=== PATIENT | male | born 1995 ===

== ENCOUNTER 2019-10-05 20:17 | Emergency (ER) | payer OTHER ==
[~2019-10-05] VITALS: Ht 188 cm; Wt 81.6 kg
[2019-10-06] MEDS ORDERED: KETO10TA2 PO (15:14)
== END 2019-10-05 23:13 | disposition home or self-care (01) ==
LOC: ER 20:17
DX: B34.9 Viral infection, unspecified (principal); Z03.818 Encounter for observation for suspected exposure to other biological agents ruled out; R05 Cough; R51 Headache

== ENCOUNTER 2019-10-06 11:19 | Emergency (ER) | payer OTHER ==
[~2019-10-06] VITALS: Ht 188 cm; Wt 81.6 kg
[2019-10-06] MEDS ORDERED: KETO10TA2 PO (15:14)
== END 2019-10-06 15:38 | disposition home or self-care (01) ==
LOC: ER 11:19
DX: R10.31 Right lower quadrant pain (principal)

== ENCOUNTER 2020-02-06 11:40 | Emergency (ER) | payer OTHER ==
[~2020-02-06] VITALS: Ht 188 cm; Wt 90.7 kg
[~2020-02-06 11:40] MED LIST: KETO10TA2 PO
[2020-02-06] MEDS ORDERED: AIRBORNE EFFER1 EACH PO (12:05)
[2020-02-06] MEDS ORDERED: SYMBICORT 16010.2 GM IH (12:05)
== END 2020-02-06 14:04 | disposition home or self-care (01) ==
LOC: ER 11:40
DX: R05 Cough (principal); Z03.818 Encounter for observation for suspected exposure to other biological agents ruled out

== ENCOUNTER 2024-04-19 08:28 | Emergency (ER) | payer OTHER ==
[~2024-04-19] VITALS: Ht 190.5 cm; Wt 90.7 kg
[~2024-04-19 08:28] MED LIST changes: +AIRBORNE EFFER1 EACH PO; +SYMBICORT 16010.2 GM IH
[2024-04-19] MEDS ORDERED: KETOROLAC TROMETHAMINE 60 MG VIAL IM ONE ×2 (09:10→09:15)
[2024-04-19] MEDS ORDERED: DEXAMETHASONE SODIUM PHOSPHATE 4 MG/ML VIAL ONE (09:10)
[2024-04-19] MEDS ORDERED: IBU800 MG PO (09:11)
[2024-04-19] MEDS ORDERED: DEXAMETHASONE SODIUM PHOSPHATE 4 MG/ML VIAL IM ONE (09:15)
== END 2024-04-19 09:30 | disposition home or self-care (01) ==
LOC: ER 08:28
DX: M75.51 Bursitis of right shoulder (principal)